=== PATIENT | male | born 1995 | race Caucasian/White ===

== ENCOUNTER 2019-06-18 21:58 | Emergency (ER) | payer MEDICAID, OTHER ==
--- NOTE | 2019-06-18 22:30 | EDM.PDOC ---
ED HPI GENERAL MEDICAL PROBLEM - General Stated Complaint: RESPITORY Time Seen by Provider: 06/18/19 22:26 Source of Information: Reports: Patient History Limitations: Reports: No Limitations - History of Present Illness INITIAL COMMENTS - FREE TEXT/NARRATIVE: 23 yo male with upper respiratory symptoms of persistent cough,sore throat, headache myalgias and fever for 3 days.Progressively getting worse. He works as a [employer] agent. He denies contact with any know or confirmed cases of COVID 19. No recent travel outside the state.He is previously healthy with a clean past medical history except tobacco abuse.He smokes 1 ppd. - Related Data Allergies Allergy/AdvReac Type Severity Reaction Status Date / Time No Known Allergies Allergy Verified 06/18/19 22:35 Home Meds: Home Meds Oseltamivir [Tamiflu] 75 mg PO BID #10 cap 06/18/19 [Rx] PARoxetine HCL [Paroxetine HCl] 1 tab PO ASDIRECTED 06/18/19 [History] traZODone HCl [Trazodone HCl] 1 tab PO ASDIRECTED 06/18/19 [History] ED ROS GENERAL - Review of Systems Review Of Systems: Comprehensive ROS is negative, except as noted in HPI. ED EXAM, GENERAL - Physical Exam Exam: See Below Exam Limited By: No Limitations General Appearance: Alert, WD/WN, Anxious, Mild Distress Ears: Normal External Exam Ear Exam: Bilateral Ear: Auricle Normal, Canal Normal, TM normal Nose: Normal Inspection Throat/Mouth: Normal Inspection Head: Atraumatic Neck: Normal Inspection Respiratory/Chest: Respiratory Distress, Crackles Cardiovascular: Regular Rate, Rhythm (Male) Exam: Deferred Rectal (Males) Exam: Deferred Psychiatric: Normal Affect Skin Exam: Warm Course - Orders/Labs/Meds Orders: Active Orders 24 hr Category Date Time Status CORONAVIRUS COVID-19, JING Stat Lab 06/18/19 22:28 Received Isolation [COMM] Routine Oth 06/18/19 22:26 Ordered Departure - Departure Time of Disposition: 22:45 Disposition: Home, Self-Care 01 Clinical Impression: Acute febrile illness - Discharge Information Prescriptions: Oseltamivir [Tamiflu] 75 mg PO BID #10 cap Instructions: Influenza, Adult Referrals: PCP,None [Primary Care Provider] - Forms: ED Department Discharge Additional Instructions: Follow up PRN Sepsis Event Note - Focused Exam Date Exam was Performed: 06/18/19 Time Exam was Performed: 22:45 - Problem List & Annotations (1) Acute febrile illness SNOMED Code(s): 434095529 Code(s): R50.9 - FEVER, UNSPECIFIED Status: Acute Current Visit: Yes (2) Influenza B SNOMED Code(s): 50428898 Code(s): J10.1 - FLU DUE TO OTH IDENT INFLUENZA VIRUS W OTH RESP MANIFEST Status: Acute Current Visit: Yes - Problem List Review Problem List Initiated/Reviewed/Updated: Yes - My Orders Last 24 Hours: My Active Orders 06/18/19 22:26 Isolation [COMM] Routine 06/18/19 22:28 CORONAVIRUS COVID-19, JING Stat - Assessment/Plan Last 24 Hours: My Active Orders 06/18/19 22:26 Isolation [COMM] Routine 06/18/19 22:28 CORONAVIRUS COVID-19, JING Stat Plan: Influenza B positive. I prescribed Tamiflu. Recommend Follow up PRN and supportive therapy
== END 2019-06-18 22:55 | disposition home or self-care (01) ==
LOC: FB.ED 21:58
DX: J10.1 Influenza due to other identified influenza virus with other respiratory manifestations (principal)
CPT/HCPCS: 87804; 87804-59; 99284

== ENCOUNTER 2020-09-05 20:58 | Emergency (ER) | payer MEDICAID, MEDICARE ==
--- NOTE | 2020-09-05 21:33 | EDM.PDOC ---
ED HPI GENERAL MEDICAL PROBLEM - General Stated Complaint: CANT SEE, BURNING EYES, NOT NORMAL Time Seen by Provider: 09/05/20 21:35 Source of Information: Reports: Patient History Limitations: Reports: No Limitations - History of Present Illness INITIAL COMMENTS - FREE TEXT/NARRATIVE: Patient presented to the ED because of bilateral eye pain and redness. He removed his contact lens last night and since then he c/o pain and watery eyes. Bilateral Eye Pain Score (Numeric/FACES): 2 - Related Data Allergies Allergy/AdvReac Type Severity Reaction Status Date / Time No Known Allergies Allergy Verified 06/18/19 22:35 Home Meds: Home Meds Oseltamivir [Tamiflu] 75 mg PO BID #10 cap 06/18/19 [Rx] PARoxetine HCL [Paroxetine HCl] 40 mg PO DAILY 06/18/19 [History] Past Medical History Respiratory History: Reports: Bronchitis, Recurrent Neurological History: Reports: Other (See Below) Other Neuro History: States head injury as a young child, fell down steps. Psychiatric History: Reports: Anxiety Other Psychiatric History: Takes medications and has counseling. Dermatologic History: Reports: Other (See Below) Other Dermatologic History: History of stitches head area. History of wound infection left leg, denies MRSA. - Past Surgical History Musculoskeletal Surgical History: Reports: Other (See Below) Other Musculoskeletal Surgeries/Procedures:: Bunion and tendon repair both feet. Social & Family History - Family History Cardiac: Reports: Hypertension Neurological: Reports: Cerebral Aneurysms, Other (See Below) Other Neurological Family History: Spinal stenosis. ED ROS GENERAL - Review of Systems Review Of Systems: See Below Constitutional: Reports: No Symptoms HEENT: Reports: Eye Pain Respiratory: Reports: No Symptoms Cardiovascular: Reports: No Symptoms Endocrine: Reports: No Symptoms GI/Abdominal: Reports: No Symptoms : Reports: No Symptoms Musculoskeletal: Reports: No Symptoms Skin: Reports: No Symptoms ED EXAM GENERAL W FULL EYE - Physical Exam Exam: See Below Exam Limited By: No Limitations General Appearance: Alert, No Apparent Distress Conjunctiva & Sclera: Bilateral: Other (swelling of sclera at 6 6 0'clock position) Cornea Exam: Bilateral: Other (abarasion at 6 o'clock position) Ears: Normal External Exam, Normal Canal, Hearing Grossly Normal Nose: Normal Inspection, Normal Mucosa, No Blood Throat/Mouth: Normal Inspection, Normal Lips, Normal Teeth Head: Atraumatic, Normocephalic Neck: Normal Inspection, Supple, Non-Tender, Full Range of Motion Respiratory/Chest: No Respiratory Distress, Lungs Clear, Normal Breath Sounds Cardiovascular: Normal Peripheral Pulses, Regular Rate, Rhythm, No Edema, No Gallop, No JVD, No Murmur, No Rub GI/Abdominal: Normal Bowel Sounds, Soft, Non-Tender, No Organomegaly, No Distention, No Abnormal Bruit Back Exam: Normal Inspection, Full Range of Motion Course - Vital Signs Text/Narrative:: Procedure: tetracaine eye drops was instilled in both eyes and later stained with fluorescein. There is corneal abrasion at 6 position-bilateral and scleral swelling at 6 -bilateral. The stain was then flashed with an ophthalmic solution. Patient tolerated the procedure well without any complication. Last Recorded V/S: Last Vital Signs Temp 37.4 C 09/05/20 21:32 Pulse 72 09/05/20 21:32 Resp 20 09/05/20 21:32 BP 151/89 H 09/05/20 21:32 Pulse Ox 99 09/05/20 21:32 Departure - Departure Time of Disposition: 21:30 Disposition: Home, Self-Care 01 Condition: Good Clinical Impression: Corneal abrasion due to contact lens - Discharge Information Instructions: Corneal Abrasion, [id number] Forms: ED Department Discharge Additional Instructions: Please read discharge instructions on corneal abrasion Never rub your eyes because it can cause swelling and pain Tetracaine eye drops, 1 drop on each eye every 2-3 hours as needed for pain that you can't tolerate Neomycin-HC eye drops, 2 drops on both eyes 3 times daily until gone Apply ice packs as often as you can Take ibuprofen 800 mg with tylenol 1000 mg every 8 hours as needed for pain Follow up with an eye doctor if symptoms persist or worsen
== END 2020-09-05 21:45 | disposition home or self-care (01) ==
LOC: FB.ED 20:58
DX: S05.01XA Injury of conjunctiva and corneal abrasion without foreign body, right eye, initial encounter (principal); S05.02XA Injury of conjunctiva and corneal abrasion without foreign body, left eye, initial encounter; W22.8XXA Striking against or struck by other objects, initial encounter
CPT/HCPCS: 99283